=== PATIENT | female | born 1965 | race Caucasian/White ===

== ENCOUNTER 2017-06-17 01:15 | Emergency (ER) | payer MEDICARE, OTHER ==
[2017-06-17] MEDS: KETOROLAC 60 MG INJ IM (03:06)
== END 2017-06-17 03:36 | disposition home or self-care (01) ==
LOC: FTE 01:15
DX: M54.42 Lumbago with sciatica, left side (principal); I10 Essential (primary) hypertension
CPT/HCPCS: 96372; 99284-25; J1885